=== PATIENT | female | born 1980 | race Caucasian/White ===

== ENCOUNTER 2021-03-30 20:37 | Emergency (ER) | payer SELFPAY ==
[~2021-03-30] VITALS: Ht 154.9 cm; Wt 73.0 kg
[2021-03-30 21:14] VITALS: BP 131/75
== END 2021-03-31 02:41 | disposition left against medical advice (07) ==
LOC: ER 20:37
DX: Z53.21 Procedure and treatment not carried out due to patient leaving prior to being seen by health care provider (principal); R06.02 Shortness of breath; R07.89 Other chest pain
CPT/HCPCS: 93005

== ENCOUNTER 2022-12-06 08:19 | Emergency (ER) | payer MEDICAID ==
[~2022-12-06] VITALS: Ht 154.9 cm; Wt 82.0 kg
[2022-12-06 08:42] VITALS: BP 98/70; PULSE 66; RESP 16; TEMP 98.6; O2SAT 98
[2022-12-06] MEDS ORDERED: BACITRACIN ZINC OINT UDPKT TOP ONE (09:15)
[2022-12-06 10:50] LABS: CLARITY URINE TURBID (CLEAR); COLOR URINE YELLOW (YELLOW); GLUCOSE URINE NEGATIVE (NEGATIVE); KETONES URINE NEGATIVE (NEGATIVE); LEUKOCYTE ESTERASE URINE 3+ (NEGATIVE); NITRITE URINE NEGATIVE (NEGATIVE); OCCULT BLOOD URINE TRACE (NEGATIVE); PH URINE 7.5 (4.5-8.0); PROTEIN URINE 1+ (NEGATIVE); SPECIFIC GRAVITY URINE 1.011 (1.005-1.030)
[2022-12-06] MEDS ORDERED: CEFTRIAXONE SODIUM 500 MG/VIAL IM ONE (11:15)
[2022-12-06] MEDS ORDERED: DOXYCYCLINE HYCLATE 100MG CAPSULE PO ONE (11:15)
[2022-12-06] MEDS ORDERED: FLUCONAZOLE 150MG TABLET PO ONE (11:15)
[2022-12-06] MEDS ORDERED: NAPR-1176 MT (11:28)
[2022-12-06] MEDS ORDERED: DOXY100T2 MT (11:28)
[2022-12-06] MEDS ORDERED: PYR200 MT (11:28)
[2022-12-06 11:29] LABS: BACTERIA URINE 4+; SQUAMOUS EPITHELIAL CELL URINE 2+ /lpf (RARE/1+); WBC URINE TNTC /hpf (0-2); YEAST URINE NONE SEEN
== END 2022-12-06 12:02 | disposition home or self-care (01) ==
LOC: ER 08:19
DX: N39.0 Urinary tract infection, site not specified (principal); A64 Unspecified sexually transmitted disease
CPT/HCPCS: 99283; 10060; 87491; 87591; 81003; 81025; 87086; 87186; 87077; 96372; J0696

== ENCOUNTER 2023-01-27 08:11 | Emergency (ER) | payer MEDICAID, OTHER ==
[~2023-01-27] VITALS: Ht 162.6 cm; Wt 82.0 kg
[~2023-01-27 08:11] MED LIST: DOXY100T2 MT; NAPR-1176 MT; PYR200 MT
[2023-01-27 08:33] VITALS: O2SAT 100
[2023-01-27 08:46] LABS: CHLORIDE 107 mEq/L (98-107); INDEX HEMOLYSI 1 (1-3); INDEX ICTERIC 1 (1-4); INDEX LIPEMIC 1 (1-3); POTASSIUM 3.4 mEq/L (3.5-5.1); SODIUM 140 mEq/L (136-145)
[2023-01-27 08:53] LABS: HEMATOCRIT. 29.6 % (36.0-48.0); HEMOGLOBIN. 8.8 g/dL (12.0-16.0); MEAN CORPUSCULAR HGB CONC 29.9 g/dL (31.0-37.0); MEAN CORPUSCULAR VOLUME 73.7 fL (81.0-99.0); PLATELET 371 x1000/uL (130-400); RED BLOOD CELL COUNT 4.02 mill/uL (4.2-5.4); RED CELL DISTRIBUTION WIDTH 18.7 % (11.6-14.6); WHITE BLOOD COUNT 6.4 x1000/uL (4.5-11.0)
[2023-01-27 08:55] LABS: ALANINE AMINOTRANSFERASE 32 IU/L (13-61); ALBUMIN 2.8 g/dL (3.4-5.0); ASPARTATE AMINOTRANSFERASE 34 IU/L (15-37); BILIRUBIN TOTAL 0.4 mg/dL (0.1-1.0); CALCIUM 8.9 mg/dL (8.5-10.1); CARBON DIOXIDE 27 mEq/L (21-32); CREATININE 0.5 mg/dL (0.6-1.3); GLUCOSE 120 mg/dL (70-105); PROTEIN TOTAL 7.9 g/dL (6.0-8.3); UREA NITROGEN BLOOD 5 mg/dL (7-21)
[2023-01-27 08:57] LABS: CLARITY URINE CLOUDY (CLEAR); COLOR URINE YELLOW (YELLOW); GLUCOSE URINE NEGATIVE (NEGATIVE); KETONES URINE NEGATIVE (NEGATIVE); LEUKOCYTE ESTERASE URINE 3+ (NEGATIVE); NITRITE URINE NEGATIVE (NEGATIVE); OCCULT BLOOD URINE 2+ (NEGATIVE); PROTEIN URINE NEGATIVE (NEGATIVE); SPECIFIC GRAVITY URINE 1.009 (1.005-1.030); UROBILINOGEN URINE 0.2 E.U./dL (0.2-1.0)
[2023-01-27 09:05] LABS: TROPONIN I HIGH SENSITIVITY < 4 ng/L (<54)
[2023-01-27 09:10] LABS: DIFFERENTIAL COMMENT 1
[2023-01-27 09:14] LABS: SQUAMOUS EPITHELIAL CELL URINE 1+ /lpf (RARE/1+)
[2023-01-27 09:15] LABS: BACTERIA URINE 2+; MUCUS URINE TRACE /lpf (< = 2+); YEAST URINE NONE SEEN
[2023-01-27] MEDS ORDERED: DOXY150T9 MT ×2 (09:45)
[2023-01-27] MEDS ORDERED: DOXYCYCLINE HYCLATE 100MG CAPSULE PO ONE (09:45)
[2023-01-27] MEDS ORDERED: PENICILLIN G BENZATHINE 2,400,000 UNITS/4ML SYR IM ONE (09:45)
[2023-01-27] MEDS ORDERED: CEFTRIAXONE SODIUM 500 MG/VIAL IM ONE (09:45)
[2023-01-27] MEDS ORDERED: DOXY100C5 MT (09:46)
[2023-01-27 09:53] LABS: PLATELET ESTIMATE NORMAL
[2023-01-27 09:54] LABS: ANISOCYTOSIS 2+; MICROCYTOSIS 1+
[2023-01-27] MEDS ORDERED: LIDOCAINE HCL/EPINEPHRINE 1%-EPI 1:100,000 50 ML VIAL INFIL ONE (10:00)
[2023-01-27] MEDS ORDERED: LIDOCAINE HCL/EPINEPHRINE 1%-EPI 1:100,000 20 ML VIAL INFIL NR (10:00)
[2023-01-27] MEDS ORDERED: LIDOCAINE HCL/EPINEPHRINE 1%-EPI 1:100,000 20 ML VIAL MC NR (10:00)
[2023-01-27 10:53] VITALS: BP 134/98; PULSE 91; RESP 18; TEMP 98.6
== END 2023-01-27 10:54 | disposition home or self-care (01) ==
LOC: ER 08:11
DX: N39.0 Urinary tract infection, site not specified (principal); Z98.890 Other specified postprocedural states
CPT/HCPCS: 80053; 81003; 81025; 83690; 85025; 87086; 84484; 36415; 93005; 96372; 99284; J0696; J3490; J0561; Z7610 ×2

== ENCOUNTER 2023-03-15 11:00 | Emergency (ER) | payer MEDICAID, OTHER ==
[~2023-03-15] VITALS: Ht 154.9 cm; Wt 78.0 kg
[~2023-03-15 11:00] MED LIST changes: +DOXY100C5 MT
[2023-03-15 11:15] VITALS: O2SAT 100
[2023-03-15 12:20] LABS: DIFFERENTIAL COMMENT 0; EOSINOPHILS % 0.5 % (0.0-5.0); HEMATOCRIT. 27.8 % (36.0-48.0); HEMOGLOBIN. 8.4 g/dL (12.0-16.0); LYMPHOCYTES % 20.8 % (20.0-50.0); MEAN CORPUSCULAR HEMOGLOBIN 22.1 pg (28.0-32.0); MEAN CORPUSCULAR HGB CONC 30.3 g/dL (31.0-37.0); MEAN CORPUSCULAR VOLUME 72.8 fL (81.0-99.0); MEAN PLATELET VOLUME 7.6 fl (7.4-10.4); MONOCYTES % 6.5 % (2.0-8.0); NEUTROPHILS % 71.2 % (40.0-76.0); PLATELET 391 x1000/uL (130-400); RED BLOOD CELL COUNT 3.82 mill/uL (4.2-5.4); WHITE BLOOD COUNT 7.3 x1000/uL (4.5-11.0)
[2023-03-15 12:42] LABS: ALANINE AMINOTRANSFERASE 21 IU/L (10-49); ALBUMIN 3.8 g/dL (3.2-4.8); ASPARTATE AMINOTRANSFERASE 24 IU/L (<34); BILIRUBIN TOTAL 0.2 mg/dL (0.1-1.0); CALCIUM 8.6 mg/dL (8.7-10.4); CARBON DIOXIDE 24 mEq/L (21-32); CHLORIDE 108 mEq/L (98-107); CREATININE 0.6 mg/dL (0.6-1.0); GLUCOSE 126 mg/dL (70-105); PROTEIN TOTAL 7.3 g/dL (6.0-8.3); SODIUM 138 mEq/L (136-145); UREA NITROGEN BLOOD 13 mg/dL (9-23)
[2023-03-15 12:58] LABS: CLARITY URINE CLEAR (CLEAR); COLOR URINE YELLOW (YELLOW); GLUCOSE URINE NEGATIVE (NEGATIVE); KETONES URINE NEGATIVE (NEGATIVE); LEUKOCYTE ESTERASE URINE 1+ (NEGATIVE); NITRITE URINE NEGATIVE (NEGATIVE); OCCULT BLOOD URINE NEGATIVE (NEGATIVE); PROTEIN URINE NEGATIVE (NEGATIVE); UROBILINOGEN URINE 0.2 E.U./dL (0.2-1.0)
[2023-03-15 13:32] LABS: SQUAMOUS EPITHELIAL CELL URINE 2+ /lpf (RARE/1+)
[2023-03-15 13:34] LABS: BACTERIA URINE TRACE; RBC URINE 0-2 /hpf (0-2); WBC URINE 0-2 /hpf (0-2)
[2023-03-15] MEDS ORDERED: DOXY100C5 MT (14:22)
[2023-03-15] MEDS ORDERED: METR-167 MT (14:22)
[2023-03-15] MEDS ORDERED: FE300LUD MT (14:22)
[2023-03-15] MEDS ORDERED: VALA100044 MT (14:22)
[2023-03-15] MEDS ORDERED: DOCU-150 MT (14:26)
[2023-03-15] MEDS ORDERED: CEFTRIAXONE SODIUM 500 MG/VIAL IM ONE (14:30)
[2023-03-15 14:46] VITALS: BP 114/68; PULSE 69; RESP 18; TEMP 98.6
== END 2023-03-15 14:47 | disposition home or self-care (01) ==
LOC: ER 11:00
DX: D64.9 Anemia, unspecified (principal); B00.1 Herpesviral vesicular dermatitis; A59.9 Trichomoniasis, unspecified
CPT/HCPCS: 99285; 76830; 76856; 86592; 80053; 81003; 81025; 85025; 87210; 36415; 96372; J0696

== ENCOUNTER 2023-05-29 07:35 | Emergency (ER) | payer MEDICAID ==
[~2023-05-29] VITALS: Ht 154.9 cm; Wt 70.8 kg
[~2023-05-29 07:35] MED LIST changes: +DOCU-150 MT; +FE300LUD MT; +METR-167 MT; +VALA100044 MT
[2023-05-29 07:42] VITALS: BP 109/69; PULSE 88; RESP 18; O2SAT 100
[2023-05-29 08:22] VITALS: TEMP 98.3
[2023-05-29] MEDS: ACETAMINOPHEN 325MG TABLET PO ONE (08:22)
[2023-05-29] MEDS ORDERED: TOPUD PO (09:47)
== END 2023-05-29 15:18 | disposition home or self-care (01) ==
LOC: ER 08:37
DX: S00.83XA Contusion of other part of head, initial encounter (principal); Z79.899 Other long term (current) drug therapy; W18.39XA Other fall on same level, initial encounter; Y93.89 Activity, other specified; Y92.89 Other specified places as the place of occurrence of the external cause; Y99.8 Other external cause status
CPT/HCPCS: 70486; 99284

== ENCOUNTER 2024-01-21 08:44 | Emergency (ER) | payer MEDICAID ==
[~2024-01-21] VITALS: Ht 154.9 cm; Wt 69.8 kg
[~2024-01-21 08:44] MED LIST changes: +TOPUD PO
[2024-01-21 08:47] VITALS: O2SAT 100
[2024-01-21] MEDS ORDERED: CEPH500T MT (09:31)
[2024-01-21] MEDS ORDERED: SULF1TAB48 MT (09:31)
[2024-01-21 09:55] VITALS: BP 121/65; PULSE 84; RESP 16; TEMP 36.78072; O2SAT 100
== END 2024-01-21 09:59 | disposition home or self-care (01) ==
LOC: ER 08:44
DX: L03.116 Cellulitis of left lower limb (principal); Z79.899 Other long term (current) drug therapy
CPT/HCPCS: 99283; Z7610